=== PATIENT | male | born 1995 ===

== ENCOUNTER 2023-06-18 20:02 | Emergency (ER) | payer BC, SELFPAY ==
[2023-06-18 20:11] VITALS: BP 107/80; PULSE 110; RESP 18; TEMP 36.8; O2SAT 99; BMI 20.1
--- NOTE | 2023-06-18 20:12 | ED_ITS ---
HPI - General Adult General Chief complaint: Nausea/Vomiting/Diarrhea Stated complaint: diabetes / high blood sugar Time Seen by Provider: 06/18/23 21:47 Related Data Previous Rx's Medication Instructions Recorded glucagon 1 mg solution for 1 mg subcut Q20M PRN hypoglycemia 06/19/23 injection (Glucagon Emergency Kit) #1 ea ondansetron 4 mg disintegrating 4 mg PO Q6H PRN nausea and 06/19/23 tablet vomiting #14 tabs Allergies Allergy/AdvReac Type Severity Reaction Status Date / Time bee sting Allergy Unknown hives Uncoded 06/19/23 07:05 insect sting Allergy Unknown hives Uncoded 06/19/23 07:05 [facility] Past Medical History Medical History (Updated 06/20/23 @ 00:02 by Jared Taylor) Romario's disease Type 1 diabetes mellitus Social History Social History (System 06/19/23 @ 07:05 by Janet Luque) Alcohol intake: current Alcohol intake frequency: holidays/special occasions only Smoked in Last 30 Days: Yes Use of substances other than those prescribed or required for medical reasons: Yes Substance Use Type: Marijuana Advance Directives: No Advance Directives Information Provided: No Physical Exam ED Vital Signs: Vital Signs - 24 hr 06/18/23 20:11 06/18/23 23:20 Temperature 98.3 F 98.6 F Pulse Rate 110 H 89 Respiratory Rate 18 16 Blood Pressure 107/80 110/61 Pulse Oximetry 99 98 Oxygen Delivery Method Room Air Room Air BMI result Body Mass Index 20.1 Course Course Course Narrative: This is a rapid medical exam: Additional HPI, ROS, PE not included below will be deferred to primary provider. Patient is a 27-year-old male with T1DM presenting to the emergency department with report of elevated blood glucose levels, up to 480, nausea and vomiting since 10, states I'm definitely in DKA. Denies any pain. States he felt ok yesterday. States he has been having pump failures with his insulin pump today. Typically wears a continuous glucose monitor, has not had it on for the past week due to insurance issues. Gave himself 6 units of insulin approx 1 hour ago. POC now 217. Plan: POC glucose, labs, UA, charge histotechnologist notified Medications Administered Discontinued Medications Generic Name Dose Route Start Last Admin Trade Name Freq PRN Reason Stop Dose Admin Sodium Chloride 1,000 mls @ 999 mls/hr 06/18/23 22:12 06/18/23 22:18 Ns IVCONT 06/18/23 23:12 999 mls/hr .Q1H1M ONE Administration Ondansetron HCl 4 mg 06/18/23 22:12 06/18/23 22:22 Ondansetron Hcl 4 Mg/2 Ml Vial IVPUSH 06/18/23 22:13 4 mg ONCE ONE Administration Medical Decision Making Medical Decision Making [facility] Narrative: - patient had a malfunction of his insulin pump. - Seems that there were both in the tubing, patient was able to fix it. - My interpretation of labs, white blood cell count 15, likely reactive leuko cytosis. Patient's blood glucose improved to 139 - patient was hydrated, given Zofran, patient feeling much better, beta hydroxybutyrate back to almost normal. Anion gap closed. DKA not suspected.\ - Patient ready for discharge Differential Diagnosis Differential Diagnoses: The differential diagnosis associated with the presentation includes ( DKA, hyperglycemia, accidental insulin overdose) Admission/Observation Consideration of admission/observation: Escalation of care including admission/observation considered ( on arrival, DKA was suspected, admission was considered) Lab Data [facility] Lab Attestation statement: I reviewed the patient's lab results. 06/18/23 21:04 06/18/23 21:03 Labs: Lab Results 06/18/23 06/18/23 06/18/23 Range/Units 20:17 20:36 21:03 WBC (4.8-10.8) X10*3/uL RBC (4.60-5.80) X10*6/uL Hgb (14.0-18.0) g/dl Hct (42.0-52.0) % MCV (80.0-98.0) fL MCH (27.0-33.0) pg MCHC (31.0-36.0) g/dl RDW (11.0-16.0) % Plt Count (160-400) X10*3/uL MPV (9.4-12.4) fL Immature Gran % (Auto) (0.0-0.4) % Neut % (Auto) (45-73) % Lymph % (Auto) (20-40) % [place] % (Auto) (2-11) % Eos % (Auto) (0-4) % Baso % (Auto) (0-2) % Lymph # (Auto) (1.2-4.9) X10*3/uL [place] # (Auto) (0.1-1.2) X10*3/uL Eos # (Auto) (0.0-0.4) X10*3/uL Baso # (Auto) (0.0-0.2) X10*3/uL Abs Immat Gran (auto) (0.00-0.03) X10*3/uL Absolute Neuts (auto) (2.0-8.3) x10*3/uL Absolute Nucleated RBC (0.0-0.012) X10*3/uL Nucleated RBC % (auto) (0.0-0.2) /100WBC VBG pH (7.32-7.43) VBG pCO2 mmHg VBG pO2 mmHg VBG HCO3 (22-26) mmol/L VBG O2 Saturation % VBG Base Excess mmol/L Sodium 139 (135-145) mmol/L Potassium 3.9 (3.3-5.1) mmol/L Chloride 106 (96-108) mmol/L Carbon Dioxide 18 L (22-29) mmol/L Anion Gap 19 (12-20) BUN 16 (9-16) mg/dL Creatinine 1.04 (0.5-1.4) mg/dL Estim Creat Clear Calc 94.9 Estimated GFR > 60 POC Glucose 217 H (60-115) mg/dL Random Glucose 129 H (60-115) mg/dL Calcium 11.0 H (8.4-10.2) mg/dL Total Bilirubin 2.0 H (0.0-1.0) mg/dL AST 17 (5-37) U/L ALT 24 (0-40) U/L Alkaline Phosphatase 86 (39-117) U/L Total Protein 8.4 H (6.5-8.0) g/dL Albumin 5.2 H (3.5-5.0) g/dL Lipase (8-78) U/L Beta-Hydroxybutyrate 2.05 H (0.02-0.27) mmol/L Urine Color Yellow Urine Appearance Clear Urine pH 6.0 (5.0-9.0) Ur Specific [place] >= 1.030 H (1.005-1.025) Urine Protein Trace (Neg-Trace) mg/dL Urine Glucose (UA) >=1000 H (Negative) mg/dL Urine Ketones >=160 (Negative) mg/dL Urine Blood Negative (Negative) Urine Nitrite Negative (Negative) Ur Leukocyte Esterase Negative (Negative) Urine RBC 0-2 (0-2) /HPF Urine WBC 0-5 (0-5) /HPF Ur Squamous Epith Cells 0-2 (0-2) /HPF Urine Bacteria None Seen (None Seen) Hyaline Casts 0-2 (0-2) /LPF 06/18/23 06/18/23 06/18/23 Range/Units 21:04 21:04 21:09 WBC 15.4 H (4.8-10.8) X10*3/uL RBC 5.72 (4.60-5.80) X10*6/uL Hgb 17.1 (14.0-18.0) g/dl Hct 49.3 (42.0-52.0) % MCV 86.2 (80.0-98.0) fL MCH 29.9 (27.0-33.0) pg MCHC 34.7 (31.0-36.0) g/dl RDW 12.1 (11.0-16.0) % Plt Count 350 (160-400) X10*3/uL MPV 10.2 (9.4-12.4) fL Immature Gran % (Auto) 0.3 (0.0-0.4) % Neut % (Auto) 86.7 H (45-73) % Lymph % (Auto) 7.4 L (20-40) % [place] % (Auto) 5.2 (2-11) % Eos % (Auto) 0.1 (0-4) % Baso % (Auto) 0.3 (0-2) % Lymph # (Auto) 1.1 L (1.2-4.9) X10*3/uL [place] # (Auto) 0.8 (0.1-1.2) X10*3/uL Eos # (Auto) 0.0 (0.0-0.4) X10*3/uL Baso # (Auto) 0.0 (0.0-0.2) X10*3/uL Abs Immat Gran (auto) 0.05 H (0.00-0.03) X10*3/uL Absolute Neuts (auto) 13.3 H (2.0-8.3) x10*3/uL Absolute Nucleated RBC 0.000 (0.0-0.012) X10*3/uL Nucleated RBC % (auto) 0.0 (0.0-0.2) /100WBC VBG pH 7.51 H (7.32-7.43) VBG pCO2 23 mmHg VBG pO2 47 mmHg VBG HCO3 19 L (22-26) mmol/L VBG O2 Saturation 80.0 % VBG Base Excess -1.4 mmol/L Sodium (135-145) mmol/L Potassium (3.3-5.1) mmol/L Chloride (96-108) mmol/L Carbon Dioxide (22-29) mmol/L Anion Gap (12-20) BUN (9-16) mg/dL Creatinine (0.5-1.4) mg/dL Estim Creat Clear Calc Estimated GFR POC Glucose (60-115) mg/dL Random Glucose (60-115) mg/dL Calcium (8.4-10.2) mg/dL Total Bilirubin (0.0-1.0) mg/dL AST (5-37) U/L ALT (0-40) U/L Alkaline Phosphatase (39-117) U/L Total Protein (6.5-8.0) g/dL Albumin (3.5-5.0) g/dL Lipase 8 (8-78) U/L Beta-Hydroxybutyrate (0.02-0.27) mmol/L Urine Color Urine Appearance Urine pH (5.0-9.0) Ur Specific [place] (1.005-1.025) Urine Protein (Neg-Trace) mg/dL Urine Glucose (UA) (Negative) mg/dL Urine Ketones (Negative) mg/dL Urine Blood (Negative) Urine Nitrite (Negative) Ur Leukocyte Esterase (Negative) Urine RBC (0-2) /HPF Urine WBC (0-5) /HPF Ur Squamous Epith Cells (0-2) /HPF Urine Bacteria (None Seen) Hyaline Casts (0-2) /LPF 06/18/23 06/18/23 06/19/23 Range/Units 22:05 23:11 00:27 WBC (4.8-10.8) X10*3/uL RBC (4.60-5.80) X10*6/uL Hgb (14.0-18.0) g/dl Hct (42.0-52.0) % MCV (80.0-98.0) fL MCH (27.0-33.0) pg MCHC (31.0-36.0) g/dl RDW (11.0-16.0) % Plt Count (160-400) X10*3/uL MPV (9.4-12.4) fL Immature Gran % (Auto) (0.0-0.4) % Neut % (Auto) (45-73) % Lymph % (Auto) (20-40) % [place] % (Auto) (2-11) % Eos % (Auto) (0-4) % Baso % (Auto) (0-2) % Lymph # (Auto) (1.2-4.9) X10*3/uL [place] # (Auto) (0.1-1.2) X10*3/uL Eos # (Auto) (0.0-0.4) X10*3/uL Baso # (Auto) (0.0-0.2) X10*3/uL Abs Immat Gran (auto) (0.00-0.03) X10*3/uL Absolute Neuts (auto) (2.0-8.3) x10*3/uL Absolute Nucleated RBC (0.0-0.012) X10*3/uL Nucleated RBC % (auto) (0.0-0.2) /100WBC VBG pH (7.32-7.43) VBG pCO2 mmHg VBG pO2 mmHg VBG HCO3 (22-26) mmol/L VBG O2 Saturation % VBG Base Excess mmol/L Sodium (135-145) mmol/L Potassium (3.3-5.1) mmol/L Chloride (96-108) mmol/L Carbon Dioxide (22-29) mmol/L Anion Gap (12-20) BUN (9-16) mg/dL Creatinine (0.5-1.4) mg/dL Estim Creat Clear Calc Estimated GFR POC Glucose 56 L* 125 H 139 H (60-115) mg/dL Random Glucose (60-115) mg/dL Calcium (8.4-10.2) mg/dL Total Bilirubin (0.0-1.0) mg/dL AST (5-37) U/L ALT (0-40) U/L Alkaline Phosphatase (39-117) U/L Total Protein (6.5-8.0) g/dL Albumin (3.5-5.0) g/dL Lipase (8-78) U/L Beta-Hydroxybutyrate (0.02-0.27) mmol/L Urine Color Urine Appearance Urine pH (5.0-9.0) Ur Specific [place] (1.005-1.025) Urine Protein (Neg-Trace) mg/dL Urine Glucose (UA) (Negative) mg/dL Urine Ketones (Negative) mg/dL Urine Blood (Negative) Urine Nitrite (Negative) Ur Leukocyte Esterase (Negative) Urine RBC (0-2) /HPF Urine WBC (0-5) /HPF Ur Squamous Epith Cells (0-2) /HPF Urine Bacteria (None Seen) Hyaline Casts (0-2) /LPF 06/19/23 Range/Units 00:37 WBC (4.8-10.8) X10*3/uL RBC (4.60-5.80) X10*6/uL Hgb (14.0-18.0) g/dl Hct (42.0-52.0) % MCV (80.0-98.0) fL MCH (27.0-33.0) pg MCHC (31.0-36.0) g/dl RDW (11.0-16.0) % Plt Count (160-400) X10*3/uL MPV (9.4-12.4) fL Immature Gran % (Auto) (0.0-0.4) % Neut % (Auto) (45-73) % Lymph % (Auto) (20-40) % [place] % (Auto) (2-11) % Eos % (Auto) (0-4) % Baso % (Auto) (0-2) % Lymph # (Auto) (1.2-4.9) X10*3/uL [place] # (Auto) (0.1-1.2) X10*3/uL Eos # (Auto) (0.0-0.4) X10*3/uL Baso # (Auto) (0.0-0.2) X10*3/uL Abs Immat Gran (auto) (0.00-0.03) X10*3/uL Absolute Neuts (auto) (2.0-8.3) x10*3/uL Absolute Nucleated RBC (0.0-0.012) X10*3/uL Nucleated RBC % (auto) (0.0-0.2) /100WBC VBG pH (7.32-7.43) VBG pCO2 mmHg VBG pO2 mmHg VBG HCO3 (22-26) mmol/L VBG O2 Saturation % VBG Base Excess mmol/L Sodium (135-145) mmol/L Potassium (3.3-5.1) mmol/L Chloride (96-108) mmol/L Carbon Dioxide (22-29) mmol/L Anion Gap (12-20) BUN (9-16) mg/dL Creatinine (0.5-1.4) mg/dL Estim Creat Clear Calc Estimated GFR POC Glucose (60-115) mg/dL Random Glucose (60-115) mg/dL Calcium (8.4-10.2) mg/dL Total Bilirubin (0.0-1.0) mg/dL AST (5-37) U/L ALT (0-40) U/L Alkaline Phosphatase (39-117) U/L Total Protein (6.5-8.0) g/dL Albumin (3.5-5.0) g/dL Lipase (8-78) U/L Beta-Hydroxybutyrate 0.42 H (0.02-0.27) mmol/L Urine Color Urine Appearance Urine pH (5.0-9.0) Ur Specific [place] (1.005-1.025) Urine Protein (Neg-Trace) mg/dL Urine Glucose (UA) (Negative) mg/dL Urine Ketones (Negative) mg/dL Urine Blood (Negative) Urine Nitrite (Negative) Ur Leukocyte Esterase (Negative) Urine RBC (0-2) /HPF Urine WBC (0-5) /HPF Ur Squamous Epith Cells (0-2) /HPF Urine Bacteria (None Seen) Hyaline Casts (0-2) /LPF Independent Historian Clinical information obtained from an independent historian. History obtained from or confirmed by: Spouse Critical Care Time Critical Care Time Critical Care Time: Yes Total Critical Care Time: 60 Attestation: I have personally provided critical care time. Time includes review of lab data, radiology results, discussion with consultants, and monitoring for potential decompensation. Intervention performed as documented. Discharge Plan Discharge Clinical Impression: Accidental overdose of insulin, Mechanical complication, insulin pump Patient Disposition: Home, Self-Care Instructions: Hypoglycemia in a Person with Diabetes (ED) Additional Instructions: Please follow-up with your primary care physician tomorrow. If you have any worsening or new symptoms, please return to the emergency room or call 911 Prescriptions: New Glucagon Emergency Kit (human) 1 mg recon soln 1 mg subcut Q20M PRN (Reason: hypoglycemia) Qty: 1 0RF Rx Instructions: until target blood sugar attained ondansetron 4 mg tablet,disintegrating 4 mg PO Q6H PRN (Reason: nausea and vomiting) Qty: 14 0RF Interventions: ED Discharge Assessment Last Done: 06/19/23 01:45 Discharge Date/Time: 06/19/23 01:46
[2023-06-18 20:52] LABS: Appearance Urine Clear; Color Urine Yellow; Glucose Urine UA >=1000 mg/dL (Negative); Leukocyte Esterase Urine Negative (Negative); Nitrite Urine Negative (Negative); Specific Gravity - Urine >= 1.030 (1.005-1.025); UMIC TRIGGER UACC YES; Urine Blood Negative (Negative); Urine Ketones >=160 mg/dL (Negative); Urine Protein Trace mg/dL (Neg-Trace)
[2023-06-18 20:57] LABS: Bacteria Urine None Seen (None Seen); Hyaline Casts Urine 0-2 /LPF (0-2); RBC Urine 0-2 /HPF (0-2); Squamous Epithelial Cell Urine 0-2 /HPF (0-2); WBC Urine 0-5 /HPF (0-5)
[2023-06-18 21:09] LABS: MANUAL DIFF FLAG NO
[2023-06-18 21:12] LABS: Venous Blood Gas Refer to POC result
[2023-06-18 21:13] LABS: VBG Base Excess -1.4 mmol/L; VBG HCO3 19 mmol/L (22-26); VBG pCO2 23 mmHg; VBG pH 7.51 (7.32-7.43); VBG pO2 47 mmHg
[2023-06-18 21:21] LABS: Lipase 8 U/L (8-78)
[2023-06-18 21:34] LABS: Alanine Aminotransferase 24 U/L (0-40); Albumin Level 5.2 g/dL (3.5-5.0); Alkaline Phosphatase 86 U/L (39-117); Anion Gap 19 (12-20); Aspartate Amino Transferase 17 U/L (5-37); Blood Urea Nitrogen 16 mg/dL (9-16); Carbon Dioxide 18 mmol/L (22-29); Chloride 106 mmol/L (96-108); Creatinine Clr Calc Pharmacy 94.9; Estimated Glomerular Filt Rate > 60; Glucose Random 129 mg/dL (60-115); Potassium 3.9 mmol/L (3.3-5.1); Sodium 139 mmol/L (135-145); Total Protein 8.4 g/dL (6.5-8.0)
[2023-06-18 21:37] LABS: Basophils Percent Auto 0.3 % (0-2); Eosinophils Percent Auto 0.1 % (0-4); Hematocrit 49.3 % (42.0-52.0); Hemoglobin 17.1 g/dl (14.0-18.0); Imm Gran Abs Auto 0.05 X10*3/uL (0.00-0.03); Imm Gran Pct Auto 0.3 % (0.0-0.4); Lymphocytes Absolute Auto 1.1 X10*3/uL (1.2-4.9); Lymphocytes Percent Auto 7.4 % (20-40); Mean Corpuscular HGB Conc 34.7 g/dl (31.0-36.0); Mean Corpuscular Hemoglobin 29.9 pg (27.0-33.0); Mean Corpuscular Volume 86.2 fL (80.0-98.0); Mean Platelet Volume 10.2 fL (9.4-12.4); Monocytes Absolute Auto 0.8 X10*3/uL (0.1-1.2); Monocytes Percent Auto 5.2 % (2-11); Neutrophils Absolute Auto 13.3 x10*3/uL (2.0-8.3); Neutrophils Percent Auto 86.7 % (45-73); Platelet Count 350 X10*3/uL (160-400); Red Blood Count 5.72 X10*6/uL (4.60-5.80); Red Cell Distribution Width 12.1 % (11.0-16.0); White Blood Count 15.4 X10*3/uL (4.8-10.8)
[2023-06-18 22:09] LABS: Glucose, Whole Blood 56 mg/dL (60-115)
--- NOTE | 2023-06-18 22:15 | ED_ITS ---
HPI - Nausea/Vomiting/Diarrhea General Chief complaint: Nausea/Vomiting/Diarrhea Stated complaint: diabetes / high blood sugar Time Seen by Provider: 06/18/23 21:47 Source: patient and family Mode of arrival: ambulatory Limitations: no limitations History of Present Illness HPI Narrative: patient come to the emergency room complaining of nausea vomiting. Patient states that he thinks he is in DKA. Patient is known to be a type 1 diabetic, uses an insulin pump. Patient's blood glucose has been in the 480s today. Patient states that since there was an error with his pump with the tubing. The insulin pump kept trying to pump insulin but the tubing was possibly Noah. Then suddenly, his glucose dropped to 56. Is possible that he got a large bolus of insulin once the kink in the tubing resolved. patient states he has been vomiting all day today, no diarrhea, no abdominal pain. Related Data Allergies Allergy/AdvReac Type Severity Reaction Status Date / Time No Known Allergies Allergy Verified 06/18/23 20:12 Review of Systems Review of Systems: Constitutional : No Weight loss, No Fever, No Chills, No Night Sweats, No Fatigue, No Malaise ENT/Mouth : No Hearing loss, No Ear Pain, No Nasal Congestion, No Sinus Pain, No Hoarseness, No sore throat, No Rhinorrhea, No Swallowing Difficulty Eyes: No Eye Pain, No Swelling, No Redness, No Foreign Body, No Discharge, No Vision Changes Cardiovascular : No Chest Pain, No SOB, No Dyspnea on Exertion, No Orthopnea, No Edema, No Palpitations Respiratory : No Cough, No Sputum, No Wheezing, No Smoke Exposure, No Dyspnea Gastrointestinal : Complaining of nausea vomiting, No Diarrhea, No Constipatio n, No abdominal Pain, No Hematochezia, No Melena Genitourinary : no irregular bleeding, No Dysuria, No Urinary Frequency, No Hematuria, No Urinary Incontinence, No Urgency, No Flank Pain, No Urinary Flow Changes, No Hesitancy Musculoskeletal : No joint pain, No Myalgias, No Joint Swelling Skin : No Skin Lesions, No rash Neuro : No Weakness, No Numbness, No Paresthesias, No Loss of Consciousness, No Dizziness, No Headache Psych : No Anxiety/Panic, No Depression, No SI/HI/AH/VH, No Social Issues, Heme/Lymph: No Bruising, No Bleeding,No Lymphadenopathy Endocrine : No Polyuria, No Polydipsia, No Temperature Intolerance [facility] Past Medical History Medical History (Updated 06/18/23 @ 22:17 by Rachel Anderson MD) Romario's disease Type 1 diabetes mellitus Social History Social History Advance Directives: No Advance Directives Information Provided: No Physical Exam Vital Signs: Vital Signs: Last Vital Signs Temp 98.3 F 06/18/23 20:11 Pulse 110 H 06/18/23 20:11 Resp 18 06/18/23 20:11 BP 107/80 06/18/23 20:11 Pulse Ox 99 06/18/23 20:11 O2 Del Method Room Air 06/18/23 20:11 BMI result Body Mass Index 20.1 Const: Other: Appearance: Alert. Oriented X3. No acute distress. Eyes: Pupils equal, round and reactive to light. ENT: Pharynx normal. Neck: Normal inspection. Neck supple. No lymph nodes noted. No crepitus CVS: Normal heart rate and rhythm. Pulses normal. Normal S1 and S2 Respiratory: No respiratory distress. Breath sounds normal. No Wheezing. No rales Abdomen: Soft and nontender. No rigidity. No distention. Skin: Skin warm and dry. patient seems pale.. Normal skin turgor. Extremities: No lower extremity edema. No Lacerations. No Rash Neuro: Oriented X 3. No motor deficit. No sensory deficit. Moving all extremities. No slurred speech. CN 2 through 12 grossly intact Psych: calm, cooperative, normal affect Medical Decision Making Medical Decision Making MDM Narrative: - Patient's blood glucose dropped to 56, patient feeling lightheaded, nauseous. Patient awake and alert x3. Patient given juice and solids to eat. She we will be checking patient's glucose every 20 minutes - patient getting IV fluids, Zofran Lab Data 06/18/23 21:04 06/18/23 21:03 Labs: Lab Results 06/18/23 06/18/23 06/18/23 Range/Units 20:36 21:03 21:04 WBC 15.4 H (4.8-10.8) X10*3/uL RBC 5.72 (4.60-5.80) X10*6/uL Hgb 17.1 (14.0-18.0) g/dl Hct 49.3 (42.0-52.0) % MCV 86.2 (80.0-98.0) fL MCH 29.9 (27.0-33.0) pg MCHC 34.7 (31.0-36.0) g/dl RDW 12.1 (11.0-16.0) % Plt Count 350 (160-400) X10*3/uL MPV 10.2 (9.4-12.4) fL Immature Gran % (Auto) 0.3 (0.0-0.4) % Neut % (Auto) 86.7 H (45-73) % Lymph % (Auto) 7.4 L (20-40) % [place] % (Auto) 5.2 (2-11) % Eos % (Auto) 0.1 (0-4) % Baso % (Auto) 0.3 (0-2) % Lymph # (Auto) 1.1 L (1.2-4.9) X10*3/uL [place] # (Auto) 0.8 (0.1-1.2) X10*3/uL Eos # (Auto) 0.0 (0.0-0.4) X10*3/uL Baso # (Auto) 0.0 (0.0-0.2) X10*3/uL Abs Immat Gran (auto) 0.05 H (0.00-0.03) X10*3/uL Absolute Neuts (auto) 13.3 H (2.0-8.3) x10*3/uL Absolute Nucleated RBC 0.000 (0.0-0.012) X10*3/uL Nucleated RBC % (auto) 0.0 (0.0-0.2) /100WBC VBG pH (7.32-7.43) VBG pCO2 mmHg VBG pO2 mmHg VBG HCO3 (22-26) mmol/L VBG O2 Saturation % VBG Base Excess mmol/L Sodium 139 (135-145) mmol/L Potassium 3.9 (3.3-5.1) mmol/L Chloride 106 (96-108) mmol/L Carbon Dioxide 18 L (22-29) mmol/L Anion Gap 19 (12-20) BUN 16 (9-16) mg/dL Creatinine 1.04 (0.5-1.4) mg/dL Estim Creat Clear Calc 94.9 Estimated GFR > 60 POC Glucose (60-115) mg/dL Random Glucose 129 H (60-115) mg/dL Calcium 11.0 H (8.4-10.2) mg/dL Total Bilirubin 2.0 H (0.0-1.0) mg/dL AST 17 (5-37) U/L ALT 24 (0-40) U/L Alkaline Phosphatase 86 (39-117) U/L Total Protein 8.4 H (6.5-8.0) g/dL Albumin 5.2 H (3.5-5.0) g/dL Lipase (8-78) U/L Urine Color Yellow Urine Appearance Clear Urine pH 6.0 (5.0-9.0) Ur Specific [place] >= 1.030 H (1.005-1.025) Urine Protein Trace (Neg-Trace) mg/dL Urine Glucose (UA) >=1000 H (Negative) mg/dL Urine Ketones >=160 (Negative) mg/dL Urine Blood Negative (Negative) Urine Nitrite Negative (Negative) Ur Leukocyte Esterase Negative (Negative) Urine RBC 0-2 (0-2) /HPF Urine WBC 0-5 (0-5) /HPF Ur Squamous Epith Cells 0-2 (0-2) /HPF Urine Bacteria None Seen (None Seen) Hyaline Casts 0-2 (0-2) /LPF 06/18/23 06/18/23 06/18/23 Range/Units 21:04 21:09 22:05 WBC (4.8-10.8) X10*3/uL RBC (4.60-5.80) X10*6/uL Hgb (14.0-18.0) g/dl Hct (42.0-52.0) % MCV (80.0-98.0) fL MCH (27.0-33.0) pg MCHC (31.0-36.0) g/dl RDW (11.0-16.0) % Plt Count (160-400) X10*3/uL MPV (9.4-12.4) fL Immature Gran % (Auto) (0.0-0.4) % Neut % (Auto) (45-73) % Lymph % (Auto) (20-40) % [place] % (Auto) (2-11) % Eos % (Auto) (0-4) % Baso % (Auto) (0-2) % Lymph # (Auto) (1.2-4.9) X10*3/uL [place] # (Auto) (0.1-1.2) X10*3/uL Eos # (Auto) (0.0-0.4) X10*3/uL Baso # (Auto) (0.0-0.2) X10*3/uL Abs Immat Gran (auto) (0.00-0.03) X10*3/uL Absolute Neuts (auto) (2.0-8.3) x10*3/uL Absolute Nucleated RBC (0.0-0.012) X10*3/uL Nucleated RBC % (auto) (0.0-0.2) /100WBC VBG pH 7.51 H (7.32-7.43) VBG pCO2 23 mmHg VBG pO2 47 mmHg VBG HCO3 19 L (22-26) mmol/L VBG O2 Saturation 80.0 % VBG Base Excess -1.4 mmol/L Sodium (135-145) mmol/L Potassium (3.3-5.1) mmol/L Chloride (96-108) mmol/L Carbon Dioxide (22-29) mmol/L Anion Gap (12-20) BUN (9-16) mg/dL Creatinine (0.5-1.4) mg/dL Estim Creat Clear Calc Estimated GFR POC Glucose 56 L* (60-115) mg/dL Random Glucose (60-115) mg/dL Calcium (8.4-10.2) mg/dL Total Bilirubin (0.0-1.0) mg/dL AST (5-37) U/L ALT (0-40) U/L Alkaline Phosphatase (39-117) U/L Total Protein (6.5-8.0) g/dL Albumin (3.5-5.0) g/dL Lipase 8 (8-78) U/L Urine Color Urine Appearance Urine pH (5.0-9.0) Ur Specific [place] (1.005-1.025) Urine Protein (Neg-Trace) mg/dL Urine Glucose (UA) (Negative) mg/dL Urine Ketones (Negative) mg/dL Urine Blood (Negative) Urine Nitrite (Negative) Ur Leukocyte Esterase (Negative) Urine RBC (0-2) /HPF Urine WBC (0-5) /HPF Ur Squamous Epith Cells (0-2) /HPF Urine Bacteria (None Seen) Hyaline Casts (0-2) /LPF
[2023-06-18] MEDS: 0.9 % Sodium Chloride 1,000 ML 999 ML IVCONT (22:18)
[2023-06-18] MEDS: ondansetron HCL 4 MG/2 ML VIAL IVPUSH (22:22)
[2023-06-18 22:39] LABS: Glucose, Whole Blood 217 mg/dL (60-115)
[2023-06-18 22:55] LABS: Beta-Hydroxybutyrate 2.05 mmol/L (0.02-0.27)
--- NOTE | 2023-06-18 23:10 | MHC.EDTECH ---
This pct went into patients room and offered to help him get washed up a little and help hime wash his hair due to patients body and hair having dirt cake all over,patient however refused this pct will try again at a later time. RN aware
[2023-06-18 23:19] LABS: Glucose, Whole Blood 125 mg/dL (60-115)
[2023-06-18 23:20] VITALS: BP 110/61; PULSE 89; RESP 16; TEMP 37; O2SAT 98
[2023-06-19 00:33] LABS: Glucose, Whole Blood 139 mg/dL (60-115)
[2023-06-19 00:55] LABS: Beta-Hydroxybutyrate 0.42 mmol/L (0.02-0.27)
[2023-06-19 01:24] VITALS: BP 104/57; PULSE 66; RESP 16; TEMP 36.9; O2SAT 98
--- NOTE | 2023-06-19 01:41 | PC.NURSE ---
PT alert and oriented, arrived triaged from waiting room. VSS, pt reports nausea vomiting and weakness. POC in the 400's at home. Insulin pump malfunctioning. POC on arrival to ED was 250s. Repeat POC in room was 56. [place] juice with sugar and emily crackers given. IV access in left ac. Medications administered per MAR. PT denies pain. and mother at bedside. Call shelton within reach.
== END 2023-06-19 01:46 | disposition home or self-care (01) ==
PROVIDERS: Registered Nurse Emergency; Emergency Provider Emergency Medicine
DX: R11.2 Nausea with vomiting, unspecified (principal); R19.7 Diarrhea, unspecified; R42 Dizziness and giddiness; E10.9 Type 1 diabetes mellitus without complications; Z79.4 Long term (current) use of insulin; Z96.41 Presence of insulin pump (external) (internal)
CPT/HCPCS: 36415; 80053; 81001; 82010; 82803; 82947; 83690; 85025; 96374; 99284; J2405

== ENCOUNTER 2024-07-16 15:20 | Emergency (ER) | payer SELFPAY ==
--- NOTE | ~2024-07-16 | XR_ITS ---
EXAMINATION: XR CHEST CLINICAL INFORMATION: Cough. Question pneumonia. COMPARISON: Report from a chest radiograph dated 01/21/2013. TECHNIQUE: Frontal view of the chest was obtained. FINDINGS: The lungs are clear. The cardiomediastinal silhouette is normal in size. There is no pleural effusion or pneumothorax. No acute osseous abnormality. XR/XR chest 1V IMPRESSION: No acute cardiopulmonary findings. Electronically signed by: Darwin Singh MD 07/16/2024 09:25 PM EDT
[2024-07-16 15:57] VITALS: BP 134/84; PULSE 106; RESP 18; TEMP 37; O2SAT 97; BMI 18.9
--- NOTE | 2024-07-16 16:03 | ED_ITS ---
HPI - General Adult General Chief complaint: Recheck/Abnormal Lab/Rx Stated complaint: DKA and pneumonia? sent from urgent care Time Seen by Provider: 07/16/24 20:16 Source: patient Mode of arrival: ambulatory Limitations: no limitations History of Present Illness ED Provider: kar TAI narrative: Patient is type 1 diabetic on insulin pump with not feeling good for last 2 3 days been coughing and feeling short of breath not eating or drinking well noticed ketones in the urine was seen at urgent care prior to arrival and sent the patient here no abdominal pain no nausea no vomiting did not eat or drink much today blood sugar is around 200 range cough is mostly dry with some mucopurulent expectoration sometimes Related Data Previous Rx's ?Medication ?Instructions ?Recorded glucagon 1 mg solution for 1 mg subcut Q20M PRN hypoglycemia 06/19/23 injection (Glucagon Emergency Kit) #1 ea ondansetron 4 mg disintegrating 4 mg PO Q6H PRN nausea and 06/19/23 tablet vomiting #14 tabs benzonatate 200 mg capsule 200 mg PO TID PRN cough #20 caps 07/16/24 cefuroxime axetil 500 mg tablet 500 mg PO BID 7 days #14 tabs 07/16/24 Allergies Allergy/AdvReac Type Severity Reaction Status Date / Time bee sting Allergy Unknown hives Uncoded 07/16/24 16:01 insect sting Allergy Unknown hives Uncoded 07/16/24 16:01 Review of Systems 2 Review of Systems: Yes all other systems are reviewed and are negative PMFSH Past Medical History Medical History Romario's disease Type 1 diabetes mellitus Social History Social History Alcohol intake: current Alcohol intake frequency: holidays/special occasions only Smoked in Last 30 Days: No Substance Use Type: Marijuana Advance Directives: No Advance Directives Information Provided: No Do you have a plan to hurt others: No Plan Physical Exam ED Vital Signs: Vital Signs - 24 hr 07/16/24 15:57 07/16/24 17:09 07/16/24 20:07 Temperature 98.6 F 98.3 F Pulse Rate 106 H 104 H 81 Respiratory Rate 18 20 16 Blood Pressure 134/84 130/73 Pulse Oximetry 97 97 Oxygen Delivery Method Room Air Room Air 07/16/24 21:38 07/16/24 23:37 Temperature 98.4 F Pulse Rate 86 88 Respiratory Rate 18 Blood Pressure 133/75 Pulse Oximetry 98 Oxygen Delivery Method Room Air BMI result Body Mass Index 18.9 Appearance: Alert. Oriented X3. Coughing frequently mostly dry Eyes: No pallor or icterus ENT: Pharynx normal. Oral Mucosa moist Neck: Normal inspection. Neck supple. CVS: Normal heart rate and rhythm. Pulses normal. Respiratory: No respiratory distress. Equal air entry bilateral, prolonged expiration no wheezing/rales/rhonchi Abdomen: Soft and nontender. Bowel sounds are present, no mass palpable, no CVA tenderness Skin: Skin warm and dry. Normal skin color. Normal skin turgor. Extremities: No lower extremity edema. No calf tenderness Neuro: Oriented X 3. No motor deficit. Course Course Course Narrative: RME: Done by OTONIEL araya. 28 yold male presents to the ED for coughing, wheezing, and elavated glucose. Patient sent by urgent care for evaluation. Lungs positive for wheezing. Bilateral lower extremity negative for swelling, pitting edema, calf tenderness. FS 274. Chest x-ray labs ordered. Medications Administered Discontinued Medications Generic Name Dose Route Start Last Admin Trade Name Freq PRN Reason Stop Dose Admin Acetaminophen 650 mg 07/16/24 20:33 07/16/24 20:43 Acetaminophen 325 Mg Tablet PO 07/16/24 20:34 650 mg ONCE ONE Administration Albuterol Sulfate 8 puff 07/16/24 17:01 07/16/24 17:05 Albuterol Sulfate 90 Mcg 8 Gm Inhaler INHALE 07/16/24 17:02 8 puff ONCE ONE Administration Cefuroxime Axetil 500 mg 07/16/24 22:07 07/16/24 22:20 Cefuroxime Axetil 500 Mg Tablet PO 07/16/24 22:08 500 mg ONCE ONE Administration Albuterol Sulfate 5 mg/ 0 mg 07/16/24 23:00 07/16/24 23:35 Albuterol/Ipratropium 3 ml INHALE 07/16/24 23:01 4 each ONCE ONE Administration Guaifenesin/Codeine Phosphate 10 ml 07/16/24 23:01 07/16/24 23:07 Guaifen/Codeine Sf 200/20/10ml 10 Ml Liquid PO 07/16/24 23:02 10 ml ONCE ONE Administration Sodium Chloride 1,000 mls @ 999 mls/hr 07/16/24 20:33 07/16/24 21:39 Ns IV 07/16/24 21:33 Infused .Q1H1M ONE Infusion Sodium Chloride 1,000 mls @ 999 mls/hr 07/16/24 20:44 07/16/24 22:45 Ns IV 07/16/24 21:44 Infused .Q1H1M ONE Infusion Medical Decision Making Medical Decision Making [facility] Narrative: Patient with ketosis without any acidosis no anion gap likely from poor oral intake patient has patient has been sick for last 2 days patient has received IV fluids feels much better chest x-ray negative for pneumonia labs are stable likely patient has bronchitis/viral syndrome will discharge patient home on Ceftin 2300 patient noted to be wheezing at this time will give nebulizing treatment and cough drops Differential Diagnosis Differential Diagnoses: The differential diagnosis associated with the presentation includes Diabetic ketoacidosis/pneumonia/bronchitis Admission/Observation Consideration of admission/observation: Escalation of care including admission/observation considered Lab Data [facility] Lab Attestation statement: I reviewed the patient's lab results. 07/16/24 16:39 07/16/24 16:39 Labs: Lab Results 07/16/24 07/16/24 07/16/24 Range/Units 16:06 16:39 20:38 WBC 7.4 (4.8-10.8) X10*3/uL RBC 5.22 (4.60-5.80) X10*6/uL Hgb 15.9 (14.0-18.0) g/dl Hct 45.5 (42.0-52.0) % MCV 87.2 (80.0-98.0) fL MCH 30.5 (27.0-33.0) pg MCHC 34.9 (31.0-36.0) g/dl RDW 12.6 (11.0-16.0) % Plt Count 281 (160-400) X10*3/uL MPV 9.6 (9.4-12.4) fL Immature Gran % (Auto) 0.3 (0.0-0.4) % Neut % (Auto) 50.4 (45-73) % Lymph % (Auto) 32.4 (20-40) % [place] % (Auto) 13.4 H (2-11) % Eos % (Auto) 3.0 (0-4) % Baso % (Auto) 0.5 (0-2) % Lymph # (Auto) 2.4 (1.2-4.9) X10*3/uL [place] # (Auto) 1.0 (0.1-1.2) X10*3/uL Eos # (Auto) 0.2 (0.0-0.4) X10*3/uL Baso # (Auto) 0.0 (0.0-0.2) X10*3/uL Abs Immat Gran (auto) 0.02 (0.00-0.03) X10*3/uL Absolute Neuts (auto) 3.7 (2.0-8.3) x10*3/uL Absolute Nucleated RBC 0.000 (0.0-0.012) X10*3/uL Nucleated RBC % (auto) 0.0 (0.0-0.2) /100WBC VBG pH (7.32-7.43) VBG pCO2 mmHg VBG pO2 mmHg VBG HCO3 (22-26) mmol/L VBG O2 Saturation % VBG Base Excess mmol/L Sodium 139 (135-145) mmol/L Potassium 4.1 (3.3-5.1) mmol/L Chloride 102 (96-108) mmol/L Carbon Dioxide 23 (22-29) mmol/L Anion Gap 18 (12-20) BUN 17 H (9-16) mg/dL Creatinine 1.12 (0.5-1.4) mg/dL Estim Creat Clear Calc 82.4 Estimated GFR > 60 POC Glucose 274 H 295 H (60-115) mg/dL Random Glucose 293 H (60-115) mg/dL Calcium 10.1 D (8.4-10.2) mg/dL Total Bilirubin 1.5 H (0.0-1.0) mg/dL AST 16 (5-37) U/L ALT 27 (0-40) U/L Alkaline Phosphatase 83 (39-117) U/L Total Protein 7.7 (6.5-8.0) g/dL Albumin 4.7 (3.5-5.0) g/dL Beta-Hydroxybutyrate 3.00 H (0.02-0.27) mmol/L Influenza Type A (PCR) NEGATIVE (Negative) Influenza Type B (PCR) NEGATIVE (Negative) RSV RNA Qual (PCR) NEGATIVE (Negative) SARS-CoV-2 RNA (RT-PCR) NEGATIVE (Negative) 07/16/24 07/16/24 Range/Units 20:45 22:43 WBC (4.8-10.8) X10*3/uL RBC (4.60-5.80) X10*6/uL Hgb (14.0-18.0) g/dl Hct (42.0-52.0) % MCV (80.0-98.0) fL MCH (27.0-33.0) pg MCHC (31.0-36.0) g/dl RDW (11.0-16.0) % Plt Count (160-400) X10*3/uL MPV (9.4-12.4) fL Immature Gran % (Auto) (0.0-0.4) % Neut % (Auto) (45-73) % Lymph % (Auto) (20-40) % [place] % (Auto) (2-11) % Eos % (Auto) (0-4) % Baso % (Auto) (0-2) % Lymph # (Auto) (1.2-4.9) X10*3/uL [place] # (Auto) (0.1-1.2) X10*3/uL Eos # (Auto) (0.0-0.4) X10*3/uL Baso # (Auto) (0.0-0.2) X10*3/uL Abs Immat Gran (auto) (0.00-0.03) X10*3/uL Absolute Neuts (auto) (2.0-8.3) x10*3/uL Absolute Nucleated RBC (0.0-0.012) X10*3/uL Nucleated RBC % (auto) (0.0-0.2) /100WBC VBG pH 7.32 (7.32-7.43) VBG pCO2 39 mmHg VBG pO2 42 mmHg VBG HCO3 20 L (22-26) mmol/L VBG O2 Saturation 66.0 % VBG Base Excess -4.7 mmol/L Sodium (135-145) mmol/L Potassium (3.3-5.1) mmol/L Chloride (96-108) mmol/L Carbon Dioxide (22-29) mmol/L Anion Gap (12-20) BUN (9-16) mg/dL Creatinine (0.5-1.4) mg/dL Estim Creat Clear Calc Estimated GFR POC Glucose 266 H (60-115) mg/dL Random Glucose (60-115) mg/dL Calcium (8.4-10.2) mg/dL Total Bilirubin (0.0-1.0) mg/dL AST (5-37) U/L ALT (0-40) U/L Alkaline Phosphatase (39-117) U/L Total Protein (6.5-8.0) g/dL Albumin (3.5-5.0) g/dL Beta-Hydroxybutyrate (0.02-0.27) mmol/L Influenza Type A (PCR) (Negative) Influenza Type B (PCR) (Negative) RSV RNA Qual (PCR) (Negative) SARS-CoV-2 RNA (RT-PCR) (Negative) Independent Interpretation I performed an independent interpretation of an: Plain X-Ray Radiology Impression Discussion of test interpretation with radiology: I have reviewed the radiologist's reading. Radiologist Impression: No infiltrate Critical Care Time Critical Care Time Critical Care Time: Yes Total Critical Care Time: 55 Attestation: The patient was critically ill with a high probability of imminent or life threatening deterioration. I spent greater than ?60??minutes of discontinuous time evaluating the patient,delivering critical care at the bedside, discussing and evaluating pertinent data with consultants. Critical care time does not include time spent performing separately billable procedures or teaching. Total time spent performing critical care was 55???minutes. Discharge Plan Discharge Clinical Impression: Acute bronchitis, Diabetic ketosis Patient Disposition: Home, Self-Care Instructions: Blood and Urine Ketones (ED), Acute Bronchitis (ED) Additional Instructions: Drink plenty of fluids Antibiotics as prescribed for bronchitis Use inhaler 2 puffs every 6 hours as needed for wheezing Cough drops as prescribed Prescriptions: New benzonatate 200 mg capsule 200 mg PO TID PRN (Reason: cough) Qty: 20 0RF cefuroxime axetil 500 mg tablet 500 mg PO BID 7 Days Qty: 14 0RF No Action Glucagon Emergency Kit (human) 1 mg recon soln 1 mg subcut Q20M PRN (Reason: hypoglycemia) Qty: 1 0RF Rx Instructions: until target blood sugar attained ondansetron 4 mg tablet,disintegrating 4 mg PO Q6H PRN (Reason: nausea and vomiting) Qty: 14 0RF Stand Alone Forms: Work/School Release Discharge Date/Time: 07/16/24 23:52 Print Language: Ukrainian
[2024-07-16 16:11] LABS: Glucose, Whole Blood 274 mg/dL (60-115)
[2024-07-16 16:55] LABS: MANUAL DIFF FLAG NO
[2024-07-16 16:58] LABS: Basophils Percent Auto 0.5 % (0-2); Eosinophils Absolute Auto 0.2 X10*3/uL (0.0-0.4); Hematocrit 45.5 % (42.0-52.0); Hemoglobin 15.9 g/dl (14.0-18.0); Imm Gran Abs Auto 0.02 X10*3/uL (0.00-0.03); Imm Gran Pct Auto 0.3 % (0.0-0.4); Lymphocytes Absolute Auto 2.4 X10*3/uL (1.2-4.9); Lymphocytes Percent Auto 32.4 % (20-40); Mean Corpuscular HGB Conc 34.9 g/dl (31.0-36.0); Mean Corpuscular Hemoglobin 30.5 pg (27.0-33.0); Mean Corpuscular Volume 87.2 fL (80.0-98.0); Mean Platelet Volume 9.6 fL (9.4-12.4); Monocytes Percent Auto 13.4 % (2-11); Neutrophils Absolute Auto 3.7 x10*3/uL (2.0-8.3); Neutrophils Percent Auto 50.4 % (45-73); Platelet Count 281 X10*3/uL (160-400); Red Blood Count 5.22 X10*6/uL (4.60-5.80); Red Cell Distribution Width 12.6 % (11.0-16.0); White Blood Count 7.4 X10*3/uL (4.8-10.8)
[2024-07-16] MEDS: Albuterol Sulfate 90 MCG 8 GM INHALER 8 PUFF INHALE (17:05)
[2024-07-16 17:09] VITALS: PULSE 104; RESP 20; O2SAT 98
[2024-07-16 17:12] LABS: Alanine Aminotransferase 27 U/L (0-40); Albumin Level 4.7 g/dL (3.5-5.0); Alkaline Phosphatase 83 U/L (39-117); Anion Gap 18 (12-20); Aspartate Amino Transferase 16 U/L (5-37); Bilirubin Total 1.5 mg/dL (0.0-1.0); Blood Urea Nitrogen 17 mg/dL (9-16); Calcium 10.1 mg/dL (8.4-10.2); Carbon Dioxide 23 mmol/L (22-29); Chloride 102 mmol/L (96-108); Creatinine Clr Calc Pharmacy 82.4; Estimated Glomerular Filt Rate > 60; Glucose Random 293 mg/dL (60-115); Potassium 4.1 mmol/L (3.3-5.1); Sodium 139 mmol/L (135-145); Total Protein 7.7 g/dL (6.5-8.0)
[2024-07-16 17:49] LABS: Influenza A PCR NEGATIVE (Negative); Influenza B PCR NEGATIVE (Negative); Resp Syncy Virus RNA Qual PCR NEGATIVE (Negative); SARS COV2 PCR INHOUSE NEGATIVE (Negative)
[2024-07-16 20:07] VITALS: BP 130/73; PULSE 81; RESP 16; TEMP 36.8; O2SAT 97
[2024-07-16] MEDS: 0.9 % Sodium Chloride 1,000 ML 999 ML IV ×2 (20:43→21:39)
[2024-07-16] MEDS: Acetaminophen 325 MG TABLET 650 MG PO (20:43)
--- NOTE | 2024-07-16 20:44 | MHC.EDTECH ---
Patient blood sugar check ,and vbg drawn and sent to lab .
[2024-07-16 20:45] LABS: Glucose, Whole Blood 295 mg/dL (60-115)
--- NOTE | 2024-07-16 20:47 | PC.NURSE ---
patient presenting today for shortness of breath (MD aware) and is also a type 1 diabetic who has not been eating or drinking and just generally feeling unwell. Patient currently receiving tylenol and iv fluids
[2024-07-16 20:52] LABS: VBG Base Excess -4.7 mmol/L; VBG HCO3 20 mmol/L (22-26); VBG pCO2 39 mmHg; VBG pH 7.32 (7.32-7.43); VBG pO2 42 mmHg
[2024-07-16 20:53] LABS: Venous Blood Gas Refer to POC result
[2024-07-16 21:38] VITALS: BP 133/75; PULSE 86; RESP 18; TEMP 36.9; O2SAT 98
[2024-07-16] MEDS: cefuroxime axetiL 500 MG TABLET PO (22:20)
--- NOTE | 2024-07-16 22:45 | MHC.EDTECH ---
Patient blood sugar check ,Provider aware of Patient result of 266.
[2024-07-16 22:49] LABS: Glucose, Whole Blood 266 mg/dL (60-115)
[2024-07-16] MEDS: guaiFEN/Codeine SF 200/20/10ML 10 ML LIQUID PO (23:07)
[2024-07-16] MEDS: Albuterol Sulfate 5 MG, Albuterol/Iprat 2.5/0.5MG 3 ML 3 ML INHALE (23:35)
[2024-07-16 23:37] VITALS: PULSE 88; O2SAT 96
== END 2024-07-16 23:52 | disposition home or self-care (01) ==
PROVIDERS: Physician Assistant; Emergency Provider Internal Medicine
DX: J20.9 Acute bronchitis, unspecified (principal); R05.9 Cough, unspecified; R06.02 Shortness of breath; E11.10 Type 2 diabetes mellitus with ketoacidosis without coma; Z79.899 Other long term (current) drug therapy; Z03.818 Encounter for observation for suspected exposure to other biological agents ruled out; Z96.41 Presence of insulin pump (external) (internal)
CPT/HCPCS: 0241U; 36415; 71045; 80053; 82010; 82803; 82947; 85025; 94640; 96360; 96361; 99284; 99285